=== PATIENT | female | born 1950 | race Caucasian/White ===

== ENCOUNTER 2018-05-26 22:52 | Emergency (ER) | payer MEDICARE, OTHER ==
[~2018-05-26] VITALS: Ht 160 cm; Wt 77.1 kg
--- NOTE | 2018-05-26 23:00 | NUR ---
68 yo female bib self. patient is alert and oriented, c/o abd pain. patient ambulated to er bed, skin warm and dry, resp even and unlabored. 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 awaiting orders from provider
[2018-05-26] MEDS ORDERED: KETOROLAC TROMETHAMINE INJ 30 MG/ML VIAL ONE (23:47)
[2018-05-27] MEDS ORDERED: KETOROLAC TROMETHAMINE INJ 30 MG/ML VIAL IV ONE
--- NOTE | 2018-05-27 | NUR ---
20g left ac iv started, blood sample obtained and sent to lab. medicated pt as ordered
[2018-05-27 00:02] LABS: BASOPHILS % (AUTO) 0.3 % (0.0-2.0); EOSINOPHILS % (AUTO) 0.9 % (0.0-6.0); HEMATOCRIT 38 % (33-45); HEMOGLOBIN 12.7 g/dL (11.5-14.8); LYMPHOCYTES # (AUTO) 2.2 /CMM (0.8-4.8); LYMPHOCYTES % (AUTO) 33.5 % (20.0-44.0); MEAN CORPUSCULAR HEMOGLOBIN 31 PG (26.0-33.0); MEAN CORPUSCULAR HGB CONC 33 g/dl (31.0-36.0); MEAN CORPUSCULAR VOLUME 92 fL (82-100); MONOCYTES # (AUTO) 0.7 /CMM (0.1-1.30); MONOCYTES % (AUTO) 10.6 % (2.0-12.0); NEUTROPHILS # (AUTO) 3.6 /CMM (1.8-8.9); NEUTROPHILS % (AUTO) 54.7 % (43.0-81.0); PLATELET COUNT (AUTO) 140 /CMM (150-450); RDW COEFFICIENT OF VARIATION 12.4 (11.5-15.0); RED BLOOD CELL COUNT(AUTO) 4.14 MIL/uL (4.0-5.2); WHITE BLOOD COUNT (AUTO) 6.6 K/uL (4.3-11.0)
[2018-05-27 00:03] LABS: APPEARANCE,URINE CLEAR (CLEAR); BILIRUBIN,URINE NEGATIVE (NEGATIVE); BLOOD, URINE NEGATIVE Ery/uL (NEGATIVE); COLOR,URINE YELLOW (YELLOW); KETONES,URINE NEGATIVE (NEGATIVE); LEUKOCYTE ESTERASE ,URINE NEGATIVE (NEGATIVE); NITRITE, URINE NEGATIVE (NEGATIVE); PROTEIN,URINE NEGATIVE (NEGATIVE); UGLUCOSE NEGATIVE (NEGATIVE); UROBILINOGEN,URINE 0.2 EU/dL (0.2)
[2018-05-27 00:15] LABS: CALCIUM, SERUM 8.7 mg/dL (8.5-10.1); CREATININE 1.2 mg/dL (0.6-1.3); POTASSIUM 3.3 mmol/L (3.5-5.1)
[2018-05-27 00:16] LABS: INR 1.03 (0.87-1.13)
[2018-05-27 00:23] LABS: ALBUMIN 3.8 g/dL (3.4-5.0); BILIRUBIN,DIRECT 0.1 mg/dL (0.0-0.2); BILIRUBIN,TOTAL 0.4 mg/dL (0.2-1.0); TOTAL PROTEIN, SERUM 7.9 g/dL (6.4-8.2)
[2018-05-27] MEDS ORDERED: CT SWABBABLE VALVE TRANS SET 1 EA INFUS.SET MC ONE (00:27)
[2018-05-27] MEDS ORDERED: IOHEXOL-300 100 ML VIAL IV ONE (00:27)
[2018-05-27] MEDS ORDERED: IV NS 0.9% 250 ML IV ONE (00:27)
[2018-05-27] MEDS ORDERED: IV NS 0.9% 1,000 ML BAG IV ONE (00:30)
[2018-05-27] MEDS ORDERED: ONDANSETRON HCL/PF - ER 4 MG/2 ML VIAL IV ONE (00:30)
[2018-05-27] MEDS ORDERED: HYDROMORPHONE 1 MG/1 ML DISP.SYRIN IV ONE (00:30)
[2018-05-27] MEDS ORDERED: HYDROMORPHONE INJ 2 MG/ML DISP.SYRIN ONE (00:31)
[2018-05-27] MEDS ORDERED: ONDANSETRON HCL/PF 4 MG/2 ML VIAL ONE (00:32)
[2018-05-27 02:22] VITALS: BP 137/82
--- NOTE | 2018-05-27 02:24 | NUR ---
Patient discharged to home in stable condition. Written and verbal after care instructions given. Patient verbalizes understanding of instruction.IV removed. Catheter intact and site benign. Pressure and 4x4 applied to site. No bleeding noted. pt ambulatory with a steady gait
== END 2018-05-27 02:24 | disposition home or self-care (01) ==
LOC: ER 22:52
DX: R10.30 Lower abdominal pain, unspecified (principal); R10.2 Pelvic and perineal pain; M54.5 Low back pain; R35.0 Frequency of micturition; Z98.890 Other specified postprocedural states
CPT/HCPCS: 36415; 74177; 76856; 80048; 80076; 81001; 83690; 85025; 85730; 96374; 96375; 99285; A4606; J1170; J1885; J2405; J7030 ×2; J7050; Q9967; 81000-TC; Z7610

== ENCOUNTER 2018-11-06 00:50 | Emergency (ER) | payer MEDICARE ==
[~2018-11-06] VITALS: Ht 160 cm; Wt 79.4 kg
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
--- NOTE | 2018-11-06 01:35 | NUR ---
Pt transported to Radiology for CT Cervical Spine
--- NOTE | 2018-11-06 01:57 | NUR ---
Back from Radiology
--- NOTE | 2018-11-06 02:30 | NUR ---
Resting in bed, no new complaints.
--- NOTE | 2018-11-06 02:44 | NUR ---
Patient discharged to home in stable condition. Written and verbal after care instructions and prescription given. Patient verbalizes understanding of instruction. Pt ambulatory with a steady gait
[2018-11-06 02:46] VITALS: BP 133/70
== END 2018-11-06 02:47 | disposition home or self-care (01) ==
LOC: ER 00:50
DX: S13.8XXA Sprain of joints and ligaments of other parts of neck, initial encounter (principal); M54.5 Low back pain; Z98.890 Other specified postprocedural states; V49.49XA Driver injured in collision with other motor vehicles in traffic accident, initial encounter; Y93.89 Activity, other specified; Y92.411 Interstate highway as the place of occurrence of the external cause; Y99.8 Other external cause status
CPT/HCPCS: 72074-TC; 72100-TC; 72125-TC; 72170-TC

== ENCOUNTER 2019-10-07 16:32 | Emergency (ER) | payer MEDICARE, OTHER ==
[~2019-10-07] VITALS: Ht 160 cm; Wt 79.4 kg
--- NOTE | 2019-10-07 16:52 | NUR ---
CAME IN FOR COUGH x 2 DAYS AND DYSURIA x 1WEEK, TO ER BED 9, HOOKED TO MONITOR, CHANGED TO HOSP GOWN, PROVIDED W WARM BLANKET, AWAITING MD TSAI
--- NOTE | 2019-10-07 16:53 | NUR ---
DR MARTINEZ AT BEDSIDE
[2019-10-07] MEDS ORDERED: predniSONE 20 MG TABLET ONE (16:59)
[2019-10-07] MEDS ORDERED: IBUPROFEN 600 MG TABLET PO ONE ×2 (16:59→17:00)
[2019-10-07] MEDS ORDERED: predniSONE 20 MG TABLET PO ONE (17:00)
[2019-10-07] MEDS ORDERED: ALBUTEROL FS 2.5 MG/3 ML VIAL.NEB NEB ONE (17:00)
[2019-10-07] MEDS ORDERED: ALBUTEROL FS 2.5 MG/3 ML VIAL.NEB ONE (17:03)
--- NOTE | 2019-10-07 17:06 | NUR ---
RT AT BEDSIDE FOR BREATHING TX
[2019-10-07 18:53] LABS: APPEARANCE,URINE Turbid (CLEAR); BILIRUBIN,URINE Negative (NEGATIVE); BLOOD, URINE Small Ery/uL (NEGATIVE); COLOR,URINE Orange (YELLOW); KETONES,URINE Negative (NEGATIVE); LEUKOCYTE ESTERASE ,URINE Small (NEGATIVE); NITRITE, URINE Positive (NEGATIVE); PROTEIN,URINE 30 mg/dl (NEGATIVE); UGLUCOSE Negative (NEGATIVE); UROBILINOGEN,URINE 0.2 EU/dL (0.2)
[2019-10-07 19:01] LABS: BACTERIA,URINE 1+ /HPF (None Seen); RBC,URINE 51-80 /HPF (0-2); SQUAMOUS EPITHELIAL CELL,UR Few /HPF (None Seen); WBC,URINE TOO NUMEROUS TO COUN /HPF (0-3)
[2019-10-07] MEDS ORDERED: CEPHALEXIN MONOHYDRATE 500 MG CAPSULE PO ONE ×2 (19:16→19:30)
--- NOTE | 2019-10-07 19:23 | NUR ---
Patient discharged to home in stable condition. Written and verbal after care instructions given. Patient verbalizes understanding of instruction. Pt ambulatory with a steady gait
[2019-10-07 19:24] VITALS: BP 132/76
== END 2019-10-07 19:24 | disposition home or self-care (01) ==
LOC: ER 16:33
DX: J06.9 Acute upper respiratory infection, unspecified (principal); N39.0 Urinary tract infection, site not specified; Z98.890 Other specified postprocedural states
CPT/HCPCS: 71045; 81001; 87077; 87086; 87186; 94640; 99284; J7512; 81000-TC